=== PATIENT | female | born 1935 | race Caucasian/White ===

== ENCOUNTER 2022-09-14 10:42 | Emergency (ER) | payer OTHER, BC ==
[~2022-09-14] VITALS: Ht 167.6 cm; Wt 63.5 kg
[2022-09-14] MEDS ORDERED: IV NORMAL SALINE 500 ML BAG IV ONE (11:15)
[2022-09-14] MEDS ORDERED: MINERAL OIL FLEET ENEMA 133 ML BOTTLE RC ONE ×2 (11:15→11:30)
[2022-09-14 11:20] LABS: HEMATOCRIT 34.4 % (31.2-41.9); MEAN CORPUSCULAR HEMOGLOBIN 33.1 uug (24.7-32.8); PLATELET COUNT (AUTO) 151 K/uL (179-408)
[2022-09-14 11:36] LABS: CARBON DIOXIDE 29 mmol/L (21-32); CHLORIDE 108 mmol/L (98-107); CREATININE 0.8 mg/dL (0.6-1.3); GLUCOSE 113 mg/dL (74-106); POTASSIUM 2.9 mmol/L (3.5-5.1); UREA NITROGEN, BLOOD 18 mg/dL (7-18)
[2022-09-14] MEDS ORDERED: SWABABLE VALVE TRANSFER SET EA MC ONE (11:40)
[2022-09-14] MEDS ORDERED: IOHEXOL 300MG/ML 100 ML INFUS..BTL ONE (11:40)
[2022-09-14 11:41] LABS: ALANINE AMINOTRANSFERASE 15 U/L (14-59); ALKALINE PHOSPHATASE 84 U/L (50-136); ASPARTATE AMINOTRANSFERASE 6 U/L (15-37); BILIRUBIN,TOTAL 0.6 mg/dL (0.2-1.0); TOTAL PROTEIN, SERUM 6.5 g/dL (6.4-8.2)
[2022-09-14] MEDS ORDERED: IV NORMAL SALINE 250 ML IV ONE (11:41)
[2022-09-14 11:42] LABS: MAGNESIUM 1.6 mg/dL (1.8-2.4); PHOSPHOROUS 2.7 mg/dL (2.5-4.9)
[2022-09-14] MEDS ORDERED: POTASSIUM CHLORIDE 20 MEQ TAB.PRT.SR PO ONE (12:15)
[2022-09-14] MEDS ORDERED: MAGNESIUM SULFATE/D5W 100 ML IV SCH (12:15)
[2022-09-14] MEDS ORDERED: POTASSIUM CHLORIDE 20 MEQ TAB.PRT.SR ONE (12:18)
[2022-09-14] MEDS ORDERED: MAGNESIUM SULFATE/D5W 100 ML ONE (12:18)
[2022-09-14 15:23] LABS: CARBON DIOXIDE 30 mmol/L (21-32); CHLORIDE 107 mmol/L (98-107); CREATININE 0.9 mg/dL (0.6-1.3); GLUCOSE 100 mg/dL (74-106); POTASSIUM 3.1 mmol/L (3.5-5.1); UREA NITROGEN, BLOOD 16 mg/dL (7-18)
[2022-09-14 15:28] LABS: ALANINE AMINOTRANSFERASE 12 U/L (14-59); ALKALINE PHOSPHATASE 80 U/L (50-136); ASPARTATE AMINOTRANSFERASE < 5 U/L (15-37); BILIRUBIN,TOTAL 0.6 mg/dL (0.2-1.0); TOTAL PROTEIN, SERUM 6.3 g/dL (6.4-8.2)
--- NOTE | 2022-09-14 15:30 | NUR ---
Blood was redrawn for repeat CMP and magnesium level. Patient is resting comfortably on gurney while using her personal cellphone.
--- NOTE | 2022-09-14 16:11 | NUR ---
IV removed. Catheter intact and site benign. Pressure and 4x4 gauze applied to site. No bleeding noted. Patient discharged to home in stable condition. Written and verbal after care instructions given. Patient verbalized understanding and compliance of instructions. Stressed follow up with primary doctor or return to ER for worsening s/s.
== END 2022-09-14 16:11 | disposition home or self-care (01) ==
LOC: ER 10:42
DX: K59.00 Constipation, unspecified (principal); E87.8 Other disorders of electrolyte and fluid balance, not elsewhere classified
CPT/HCPCS: 99285; 74177; 96365; 96361; 83690; 83735 ×2; 84100; 85025; 36415; 80053 ×2; J3475; Q9967; J7040; A4663

== ENCOUNTER 2022-10-06 14:50 | Emergency (ER) | payer OTHER, BC ==
[~2022-10-06] VITALS: Ht 167.6 cm; Wt 63.5 kg
[2022-10-06] MEDS ORDERED: IBUPROFEN 400 MG TABLET ONE (15:24)
[2022-10-06] MEDS ORDERED: ACETAMINOPHEN ES 500 MG TABLET ONE (15:24)
[2022-10-06] MEDS ORDERED: ACETAMINOPHEN 325 MG TABLET PO ONE (15:30)
[2022-10-06] MEDS ORDERED: IBUPROFEN 200 MG TABLET PO ONE (15:30)
--- NOTE | 2022-10-06 17:25 | NUR ---
wrapped elastic bandage around pt's right knee. Gave pt d/c instructions, pt verbalized understanding. Escorted pt to her car.
== END 2022-10-06 17:34 | disposition home or self-care (01) ==
LOC: ER 14:53
DX: M25.561 Pain in right knee (principal); E78.5 Hyperlipidemia, unspecified; E11.9 Type 2 diabetes mellitus without complications; I10 Essential (primary) hypertension; Z96.653 Presence of artificial knee joint, bilateral
CPT/HCPCS: A4663; A9150

== ENCOUNTER 2023-02-18 11:15 | Inpatient (IN) | payer MEDICARE, BC ==
[~2023-02-18] VITALS: Ht 167.6 cm; Wt 64.9 kg
[2023-02-18 11:59] LABS: BASOPHILS % (AUTO) 0.2 % (0.0-2.0); DIFFERENTIAL COMMENT 1; EOSINOPHILS % (AUTO) 0.1 % (0.0-7.0); HEMATOCRIT 36.1 % (31.2-41.9); HEMOGLOBIN 12.3 g/dL (10.9-14.3); LYMPHOCYTES # (AUTO) 0.8 K/uL (0.8-4.8); LYMPHOCYTES % (AUTO) 10.2 % (20.5-51.5); MEAN CORPUSCULAR HEMOGLOBIN 33.8 uug (24.7-32.8); MEAN CORPUSCULAR HGB CONC 34 g/dL (32.3-35.6); MEAN CORPUSCULAR VOLUME 99.2 fL (75.5-95.3); MONOCYTES # (AUTO) 0.3 K/uL (0.1-1.30); MONOCYTES % (AUTO) 3.4 % (0.0-11.0); NEUTROPHILS # (AUTO) 6.8 K/uL (1.8-8.9); NEUTROPHILS % (AUTO) 86.1 % (38.5-71.5); PLATELET COUNT (AUTO) 162 K/uL (179-408); RED BLOOD CELL COUNT(AUTO) 3.64 MIL/uL (3.63-4.92); RED CELL DISTRIBUTION WIDTH 13.2 % (12.3-17.7); WHITE BLOOD COUNT (AUTO) 7.9 K/uL (3.8-11.8)
[2023-02-18 12:18] LABS: CALCIUM 9.5 mg/dL (8.5-10.1); CARBON DIOXIDE 27 mmol/L (21-32); CHLORIDE 103 mmol/L (98-107); GLUCOSE 134 mg/dL (74-106); POTASSIUM 3.4 mmol/L (3.5-5.1); SODIUM SERUM 143 mmol/L (136-145); UREA NITROGEN, BLOOD 19 mg/dL (7-18)
[2023-02-18 12:26] LABS: ALANINE AMINOTRANSFERASE 22 U/L (14-59); ALBUMIN 3.8 g/dL (3.4-5.0); ALKALINE PHOSPHATASE 72 U/L (50-136); ASPARTATE AMINOTRANSFERASE 16 U/L (15-37); BILIRUBIN,DIRECT 0.2 mg/dL (0.0-0.2); BILIRUBIN,TOTAL 0.6 mg/dL (0.2-1.0); TOTAL PROTEIN, SERUM 7.1 g/dL (6.4-8.2)
[2023-02-18] MEDS ORDERED: SWABABLE VALVE TRANSFER SET EA MC ONE (12:38)
[2023-02-18] MEDS ORDERED: IOHEXOL 350 100 ML INFUS..BTL ONE (12:38)
[2023-02-18] MEDS ORDERED: IV NORMAL SALINE 250 ML IV ONE (12:38)
[2023-02-18 13:56] LABS: CREATINE KINASE, TOTAL 54 U/L (26-192)
[2023-02-18 14:00] LABS: *BILIRUBIN,URIN NEGATIVE (NEGATIVE); *BLOOD, URINE NEGATIVE (NEGATIVE); *CLARITY,URINE CLEAR (CLEAR); *COLOR,URINE YELLOW (YELLOW); *KETONES,URINE NEGATIVE (NEGATIVE); *PROTEIN,URINE NEGATIVE (NEGATIVE); *UROBILINOGEN,URINE 0.2 E.U./dl (NORMAL); LEUKOCYTE ESTERASE ,URINE 1+ (NEGATIVE); NITRITE, URINE NEGATIVE (NEGATIVE); UGLUCOSE NEGATIVE (NEGATIVE)
[2023-02-18 15:30] LABS: BACTERIA,URINE MANY /HPF (NONE SEEN); RBC,URINE 0-3 /HPF (0-3); SQUAMOUS EPITHELIAL CELL,UR FEW /HPF (NONE SEEN)
[2023-02-18] MEDS ORDERED: MAGNESIUM HYDROXIDE 30 ML LIQUID UDC PO PRN (19:30)
[2023-02-18] MEDS ORDERED: REMEDY ESSENTIAL ZINC PASTE 113 GM TP PRN (19:30)
[2023-02-18] MEDS ORDERED: ONDANSETRON 4 MG/2 ML VIAL IV PRN (19:30)
[2023-02-18] MEDS: ACETAMINOPHEN 325 MG TABLET PO PRN (23:11)
[2023-02-18] MEDS: ENOXAPARIN SODIUM 40 MG/0.4 ML DISP.SYRIN SQ SCH (23:12)
[2023-02-18 23:50] VITALS: BP 141/72; TEMP 98.1; O2SAT 98
[2023-02-19 06:00] VITALS: BP 124/92; TEMP 98.2; O2SAT 96
[2023-02-19] MEDS: PANTOPRAZOLE SODIUM 40 MG TABLET.DR PO SCH (06:26)
[2023-02-19] MEDS: ACETAMINOPHEN 325 MG TABLET PO PRN (06:40)
[2023-02-19 07:45] LABS: CALCIUM 8.9 mg/dL (8.5-10.1); CARBON DIOXIDE 29 mmol/L (21-32); CHLORIDE 107 mmol/L (98-107); CREATININE 0.9 mg/dL (0.6-1.3); GLUCOSE 96 mg/dL (74-106); MAGNESIUM 1.9 mg/dL (1.8-2.4); PHOSPHOROUS 3.5 mg/dL (2.5-4.9); POTASSIUM 3.2 mmol/L (3.5-5.1); SODIUM SERUM 145 mmol/L (136-145); UREA NITROGEN, BLOOD 21 mg/dL (7-18)
[2023-02-19 07:58] LABS: BASOPHILS % (AUTO) 0.5 % (0.0-2.0); EOSINOPHILS # (AUTO) 0.1 K/uL (0.0-0.7); EOSINOPHILS % (AUTO) 1.5 % (0.0-7.0); HEMATOCRIT 34.3 % (31.2-41.9); HEMOGLOBIN 11.7 g/dL (10.9-14.3); LYMPHOCYTES # (AUTO) 1.5 K/uL (0.8-4.8); LYMPHOCYTES % (AUTO) 28.9 % (20.5-51.5); MEAN CORPUSCULAR HEMOGLOBIN 33.9 uug (24.7-32.8); MEAN CORPUSCULAR HGB CONC 34 g/dL (32.3-35.6); MEAN CORPUSCULAR VOLUME 99.3 fL (75.5-95.3); MONOCYTES # (AUTO) 0.4 K/uL (0.1-1.30); MONOCYTES % (AUTO) 8.3 % (0.0-11.0); NEUTROPHILS # (AUTO) 3.1 K/uL (1.8-8.9); NEUTROPHILS % (AUTO) 60.8 % (38.5-71.5); PLATELET COUNT (AUTO) 153 K/uL (179-408); RED BLOOD CELL COUNT(AUTO) 3.46 MIL/uL (3.63-4.92); RED CELL DISTRIBUTION WIDTH 13.1 % (12.3-17.7); WHITE BLOOD COUNT (AUTO) 5.1 K/uL (3.8-11.8)
[2023-02-19] MEDS ORDERED: POTASSIUM CHLORIDE 20 MEQ POWDER PACKET GT ONE (08:00)
[2023-02-19 08:07] LABS: DIFFERENTIAL COMMENT 1
[2023-02-19] MEDS ORDERED: POTASSIUM CHLORIDE 20 MEQ TAB.PRT.SR PO ONE (08:15)
[2023-02-19] MEDS: ASPIRIN 81 MG TAB.CHEW PO SCH (09:16)
[2023-02-19] MEDS: HYDROCODONE/APAP 5-325MG TABLET PO PRN ×2 (09:23→21:20)
[2023-02-19 10:46] LABS: THYROID STIMULATING HORMONE 1.831 mIU/mL (0.358-3.740)
[2023-02-19 11:13] VITALS: BP 115/58; TEMP 98.2; O2SAT 96
[2023-02-19 16:27] VITALS: BP 146/71; TEMP 98; O2SAT 98
[2023-02-19] MEDS ORDERED: AMYL1CAP62 PO (16:44)
[2023-02-19] MEDS ORDERED: DONE10TA44 PO (16:44)
[2023-02-19] MEDS ORDERED: DONE5TAB34 PO (16:44)
[2023-02-19] MEDS ORDERED: ERGO50CA PO (16:44)
[2023-02-19] MEDS ORDERED: ICOS1CAP PO (16:44)
[2023-02-19] MEDS ORDERED: MEMA5TAB42 PO (16:44)
[2023-02-19 19:56] VITALS: BP 111/78; TEMP 97; O2SAT 95
[2023-02-19] MEDS: ENOXAPARIN SODIUM 40 MG/0.4 ML DISP.SYRIN SQ SCH (20:51)
[2023-02-20 00:41] VITALS: BP 112/80; TEMP 97; O2SAT 96
[2023-02-20 03:58] VITALS: BP 113/79; TEMP 98; O2SAT 95
[2023-02-20 06:07] LABS: CANCER AG, 125 9.6 U/mL (0.0-38.1); CARBOHYDRATE ANTIGEN, 19-9 <2 U/mL (0-35); CARCINOEMBRYONIC AG (CEA) 2.3 ng/mL (0.0-4.7)
[2023-02-20] MEDS: PANTOPRAZOLE SODIUM 40 MG TABLET.DR PO SCH (06:38)
[2023-02-20 06:47] LABS: BASOPHILS % (AUTO) 0.5 % (0.0-2.0); EOSINOPHILS # (AUTO) 0.1 K/uL (0.0-0.7); EOSINOPHILS % (AUTO) 2.2 % (0.0-7.0); HEMATOCRIT 33.9 % (31.2-41.9); HEMOGLOBIN 11.4 g/dL (10.9-14.3); LYMPHOCYTES # (AUTO) 1.3 K/uL (0.8-4.8); LYMPHOCYTES % (AUTO) 22.2 % (20.5-51.5); MEAN CORPUSCULAR HEMOGLOBIN 33.9 uug (24.7-32.8); MEAN CORPUSCULAR HGB CONC 34 g/dL (32.3-35.6); MEAN CORPUSCULAR VOLUME 100.2 fL (75.5-95.3); MONOCYTES # (AUTO) 0.4 K/uL (0.1-1.30); MONOCYTES % (AUTO) 7.3 % (0.0-11.0); NEUTROPHILS % (AUTO) 67.8 % (38.5-71.5); PLATELET COUNT (AUTO) 140 K/uL (179-408); RED BLOOD CELL COUNT(AUTO) 3.38 MIL/uL (3.63-4.92); RED CELL DISTRIBUTION WIDTH 13.4 % (12.3-17.7); WHITE BLOOD COUNT (AUTO) 5.8 K/uL (3.8-11.8)
[2023-02-20 07:09] LABS: DIFFERENTIAL COMMENT 1
[2023-02-20 07:12] LABS: CARBON DIOXIDE 26 mmol/L (21-32); CHLORIDE 109 mmol/L (98-107); CREATININE 0.9 mg/dL (0.6-1.3); GLUCOSE 99 mg/dL (74-106); MAGNESIUM 1.8 mg/dL (1.8-2.4); PHOSPHOROUS 3.8 mg/dL (2.5-4.9); POTASSIUM 3.6 mmol/L (3.5-5.1); SODIUM SERUM 145 mmol/L (136-145); UREA NITROGEN, BLOOD 21 mg/dL (7-18)
[2023-02-20 07:57] LABS: CALCIUM 9.1 mg/dL (8.5-10.1)
[2023-02-20] MEDS: ASPIRIN 81 MG TAB.CHEW PO SCH (08:20)
[2023-02-20] MEDS: HYDROCODONE/APAP 5-325MG TABLET PO PRN (08:21)
[2023-02-20] MEDS ORDERED: DONEPEZIL 10 MG TABLET PO SCH (09:21)
[2023-02-20] MEDS ORDERED: MEMANTINE HCL 5 MG TABLET PO SCH (09:23)
[2023-02-20] MEDS ORDERED: ERGOCALCIFEROL 1250 MCG PO SCH (09:30)
[2023-02-20] MEDS ORDERED: PANT40TA49 PO (10:46)
[2023-02-20] MEDS ORDERED: LIPASE/PROTEASE/AMYLASE 4200 UNITS CAPSULE.DR PO SCH (12:00)
[2023-02-20] MEDS ORDERED: Icosapent Ethyl (Vascepa) 2 GM) PO SCH (17:00)
== END 2023-02-20 14:00 | disposition home health service (06) | DRG 445 ==
LOC: ER 11:15 → TELE3 20:31 → MEDSURG3 02-20 10:29
PROVIDERS: ADMIT Student in an Organized Health Care Education/Training Program; ATTEND Internal Medicine
DX: K80.50 Calculus of bile duct without cholangitis or cholecystitis without obstruction (principal); D68.69 Other thrombophilia; N13.30 Unspecified hydronephrosis; F41.9 Anxiety disorder, unspecified; R14.1 Gas pain; R07.89 Other chest pain; R10.11 Right upper quadrant pain; D69.6 Thrombocytopenia, unspecified; E87.6 Hypokalemia; E11.9 Type 2 diabetes mellitus without complications; E78.5 Hyperlipidemia, unspecified; M19.90 Unspecified osteoarthritis, unspecified site; Z90.49 Acquired absence of other specified parts of digestive tract; Z96.653 Presence of artificial knee joint, bilateral; Z79.82 Long term (current) use of aspirin; Z85.038 Personal history of other malignant neoplasm of large intestine; Z74.09 Other reduced mobility; R91.1 Solitary pulmonary nodule; I10 Essential (primary) hypertension; R63.4 Abnormal weight loss; Z68.23 Body mass index [BMI] 23.0-23.9, adult; D75.89 Other specified diseases of blood and blood-forming organs
CPT/HCPCS: 36415; 71045; 82378; 83735; 84100; 84443; 84484; 85025; 86301; 93005; A4606; A4663; G0378; J1650; Q9967

== ENCOUNTER 2023-02-22 08:31 | Inpatient (IN) | payer MEDICARE, BC ==
[~2023-02-22] VITALS: Ht 162.6 cm; Wt 64.0 kg
[~2023-02-22 08:31] MED LIST: AMYL1CAP62 PO; DONE10TA44 PO; DONE5TAB34 PO; ERGO50CA PO; ICOS1CAP PO; MEMA5TAB42 PO; PANT40TA49 PO
[2023-02-22] MEDS ORDERED: ACET325C7 PO (08:53)
[2023-02-22 10:15] LABS: BASOPHILS # (AUTO) 0.1 K/UL (0.0-0.2); BASOPHILS % (AUTO) 1.5 % (0.0-2.0); EOSINOPHILS # (AUTO) 0.1 K/uL (0.0-0.7); EOSINOPHILS % (AUTO) 0.9 % (0.0-7.0); HEMATOCRIT 36.6 % (31.2-41.9); HEMOGLOBIN 12.4 g/dL (10.9-14.3); LYMPHOCYTES # (AUTO) 0.4 K/uL (0.8-4.8); LYMPHOCYTES % (AUTO) 5.3 % (20.5-51.5); MEAN CORPUSCULAR HEMOGLOBIN 33.7 uug (24.7-32.8); MEAN CORPUSCULAR HGB CONC 34 g/dL (32.3-35.6); MEAN CORPUSCULAR VOLUME 99.2 fL (75.5-95.3); MONOCYTES # (AUTO) 0.5 K/uL (0.1-1.30); MONOCYTES % (AUTO) 6.5 % (0.0-11.0); NEUTROPHILS # (AUTO) 6.7 K/uL (1.8-8.9); NEUTROPHILS % (AUTO) 85.8 % (38.5-71.5); PLATELET COUNT (AUTO) 169 K/uL (179-408); RED BLOOD CELL COUNT(AUTO) 3.69 MIL/uL (3.63-4.92); WHITE BLOOD COUNT (AUTO) 7.8 K/uL (3.8-11.8)
[2023-02-22 10:16] LABS: DIFFERENTIAL COMMENT 1
[2023-02-22 10:18] LABS: CALCIUM 9.8 mg/dL (8.5-10.1); CREATININE 0.9 mg/dL (0.6-1.3); POTASSIUM 3.8 mmol/L (3.5-5.1)
[2023-02-22 10:24] LABS: ALBUMIN 3.8 g/dL (3.4-5.0); BILIRUBIN,DIRECT 0.2 mg/dL (0.0-0.2); BILIRUBIN,TOTAL 0.8 mg/dL (0.2-1.0); TOTAL PROTEIN, SERUM 7.2 g/dL (6.4-8.2)
[2023-02-22] MEDS ORDERED: ACETAMINOPHEN 325 MG TABLET PO PRN (11:30)
[2023-02-22] MEDS ORDERED: MAGNESIUM HYDROXIDE 30 ML LIQUID UDC PO PRN (11:30)
[2023-02-22] MEDS ORDERED: ONDANSETRON 4 MG/2 ML VIAL IV PRN (11:30)
[2023-02-22] MEDS ORDERED: HYDROCODONE/APAP 5-325MG TABLET PO PRN (11:30)
[2023-02-22] MEDS ORDERED: REMEDY ESSENTIAL ZINC PASTE 113 GM TP PRN (11:30)
[2023-02-22] MEDS ORDERED: TEMAZEPAM 15 MG CAPSULE PO PRN (11:30)
[2023-02-22] MEDS ORDERED: MORPHINE SULFATE 2 MG/1 ML DISP.SYRIN IV PRN (11:30)
[2023-02-22] MEDS ORDERED: IV NS 1000 ML 1,000 ML IV PRN (11:30)
[2023-02-22 12:00] VITALS: BP 110/60; TEMP 98.2; O2SAT 98
[2023-02-22] MEDS ORDERED: HOME MED MISCELLANEOUS XX SCH ×3 (12:00)
[2023-02-22 12:30] VITALS: BP 148/76; TEMP 98; O2SAT 98
[2023-02-22 16:00] VITALS: BP 122/67; TEMP 99.1; O2SAT 95
[2023-02-22] MEDS: OMEGA-3 FATTY ACIDS/FISH OIL CAPSULE PO SCH (17:01)
[2023-02-22 21:23] VITALS: BP 118/70; TEMP 98.6
[2023-02-23 04:00] VITALS: BP 137/59; TEMP 98.4
[2023-02-23] MEDS ORDERED: PANTOPRAZOLE SODIUM 40 MG TABLET.DR PO SCH (07:00)
[2023-02-23 07:04] LABS: BASOPHILS % (AUTO) 0.5 % (0.0-2.0); EOSINOPHILS # (AUTO) 0.1 K/uL (0.0-0.7); EOSINOPHILS % (AUTO) 1.6 % (0.0-7.0); HEMATOCRIT 35.7 % (31.2-41.9); HEMOGLOBIN 12.2 g/dL (10.9-14.3); LYMPHOCYTES # (AUTO) 1.5 K/uL (0.8-4.8); LYMPHOCYTES % (AUTO) 23.3 % (20.5-51.5); MEAN CORPUSCULAR HGB CONC 34 g/dL (32.3-35.6); MEAN CORPUSCULAR VOLUME 99.8 fL (75.5-95.3); MONOCYTES # (AUTO) 0.5 K/uL (0.1-1.30); MONOCYTES % (AUTO) 7.3 % (0.0-11.0); NEUTROPHILS # (AUTO) 4.4 K/uL (1.8-8.9); NEUTROPHILS % (AUTO) 67.3 % (38.5-71.5); PLATELET COUNT (AUTO) 161 K/uL (179-408); RED BLOOD CELL COUNT(AUTO) 3.58 MIL/uL (3.63-4.92); RED CELL DISTRIBUTION WIDTH 13.3 % (12.3-17.7); WHITE BLOOD COUNT (AUTO) 6.5 K/uL (3.8-11.8)
[2023-02-23 07:17] LABS: CALCIUM 9.1 mg/dL (8.5-10.1); CARBON DIOXIDE 28 mmol/L (21-32); CHLORIDE 107 mmol/L (98-107); CREATININE 0.8 mg/dL (0.6-1.3); GLUCOSE 98 mg/dL (74-106); MAGNESIUM 1.7 mg/dL (1.8-2.4); PHOSPHOROUS 3.3 mg/dL (2.5-4.9); POTASSIUM 3.1 mmol/L (3.5-5.1); SODIUM SERUM 144 mmol/L (136-145); UREA NITROGEN, BLOOD 19 mg/dL (7-18)
[2023-02-23 07:23] LABS: DIFFERENTIAL COMMENT 1
[2023-02-23] MEDS ORDERED: POTASSIUM CHLORIDE 20 MEQ TAB.PRT.SR PO ONE ×2 (07:45→12:00)
[2023-02-23] MEDS: OMEGA-3 FATTY ACIDS/FISH OIL CAPSULE PO SCH (08:25)
[2023-02-23] MEDS ORDERED: DONEPEZIL 10 MG TABLET PO SCH (09:00)
[2023-02-23] MEDS ORDERED: MAGNESIUM OXIDE 400 MG TABLET PO ONE (10:00)
[2023-02-23 11:33] VITALS: BP 128/73; TEMP 98.3; O2SAT 97
[2023-02-24] MEDS ORDERED: ERGOCALCIFEROL 50,000 UNIT CAPSULE PO SCH (15:58)
== END 2023-02-23 12:45 | disposition left against medical advice (07) | DRG 392 ==
LOC: ER 08:31 → MEDSURG3 11:00
PROVIDERS: ADMIT Nurse Practitioner Acute Care; ATTEND Nurse Practitioner Acute Care
DX: K29.70 Gastritis, unspecified, without bleeding (principal); K90.9 Intestinal malabsorption, unspecified; N13.30 Unspecified hydronephrosis; R10.31 Right lower quadrant pain; K82.8 Other specified diseases of gallbladder; M19.90 Unspecified osteoarthritis, unspecified site; I10 Essential (primary) hypertension; E87.6 Hypokalemia; E78.5 Hyperlipidemia, unspecified; N28.1 Cyst of kidney, acquired; R63.4 Abnormal weight loss; Z68.24 Body mass index [BMI] 24.0-24.9, adult; R79.89 Other specified abnormal findings of blood chemistry; E11.9 Type 2 diabetes mellitus without complications; R91.1 Solitary pulmonary nodule; K57.30 Diverticulosis of large intestine without perforation or abscess without bleeding; F03.90 Unspecified dementia, unspecified severity, without behavioral disturbance, psychotic disturbance, mood disturbance, and anxiety; Z90.49 Acquired absence of other specified parts of digestive tract; Z96.653 Presence of artificial knee joint, bilateral; Z96.643 Presence of artificial hip joint, bilateral; Z85.038 Personal history of other malignant neoplasm of large intestine; Z53.29 Procedure and treatment not carried out because of patient's decision for other reasons; Z79.899 Other long term (current) drug therapy
CPT/HCPCS: 36415; 83690; 83735; 84100; 85025; G0378